=== PATIENT | male | born 1955 | race Caucasian/White ===

== ENCOUNTER 2018-01-10 06:13 | Emergency (ER) | payer OTHER ==
[2018-01-10] MEDS: HYDROCODONE/APAP (5/325) TAB PO (06:46)
== END 2018-01-10 06:54 | disposition home or self-care (01) ==
LOC: FTE 06:13
DX: H60.90 Unspecified otitis externa, unspecified ear (principal); E11.9 Type 2 diabetes mellitus without complications
CPT/HCPCS: 99283; Z7610

== ENCOUNTER 2018-01-12 11:10 | Emergency (ER) | payer OTHER | END 2018-01-12 12:38 | disposition home or self-care (01) | LOC: FTE 11:10 | DX: H60.92 Unspecified otitis externa, left ear (principal); E11.9 Type 2 diabetes mellitus without complications | CPT/HCPCS: 99283; Z7502 ==

== ENCOUNTER 2018-08-14 10:47 | Emergency (ER) | payer OTHER ==
[2018-08-14 10:59] LABS: ADD MAN DIFF? NO
[2018-08-14 11:02] LABS: WHITE BLOOD COUNT 6.9 10^3/ul (4.8-10.8)
[2018-08-14 11:02] LABS: BASOPHILS % 0.6 % (0.0-2.0); EOSINOPHILS # 0.1 10^3/ul (0.0-0.5); EOSINOPHILS % 1.5 % (0.0-7.0); HEMATOCRIT 40.3 % (42.0-52.0); HEMOGLOBIN 14.1 g/dl (14.0-18.0); LYMPHOCYTES # 1.4 10^3/ul (0.8-2.9); LYMPHOCYTES % 20.2 % (15.0-51.0); MEAN CORPUSCULAR HEMOGLOBIN 29.1 pg (29.0-33.0); MEAN CORPUSCULAR VOLUME 83.1 fl (82.0-101.0); MEAN PLATELET VOLUME 11.1 fl (7.4-10.4); MONOCYTE # 0.5 10^3/ul (0.3-0.9); MONOCYTES % 7.7 % (0.0-11.0); NEUTROPHIL # 4.8 10^3/ul (1.6-7.5); NEUTROPHILS % 69.9 % (39.0-77.0); PLATELET COUNT 218 10^3/UL (140-415); RED BLOOD COUNT 4.85 10^6/ul (4.70-6.10); RED CELL DISTRIBUTION WIDTH 11.9 % (11.5-14.5)
[2018-08-14] MEDS: IODIXANOL LOCM 100 ML BTL (11:11)
[2018-08-14] MEDS: SOD CHLORIDE 0.9% 100 ML (11:11)
[2018-08-14 11:14] LABS: HEMOGLOBIN A1C 10.7 % (0-5.9)
[2018-08-14 11:21] LABS: ANION GAP 7 (5-13); BLOOD UREA NITROGEN 20 mg/dl (7-20); CALCIUM 9.5 mg/dl (8.4-10.2); CARBON DIOXIDE 26 mmol/L (21-31); CHLORIDE 105 mmol/L (97-110); CHOL/HDL RATIO 5.4 RATIO; CHOLESTEROL 280 mg/dl (100-200); CREATINE KINASE 259 IU/L (23-200); CREATININE 0.98 mg/dl (0.61-1.24); Estimated GFR > 60 mL/min (>60); GLUCOSE 292 mg/dl (70-220); HDL CHOLESTEROL 51 mg/dl (30-78); INR 0.85; LDL CHOLESTEROL,CALCULATED 184 mg/dl; POTASSIUM 4.4 mmol/L (3.5-5.1); PROTIME 11.7 Sec (11.9-14.9); PT RATIO 0.9; SODIUM 138 mmol/L (135-144); TRIGLYCERIDES 227 mg/dl (0-149)
[2018-08-14 11:22] LABS: PARTIAL THROMBOPLASTIN TIME 25.8 Sec (23.0-35.0)
[2018-08-14 11:23] LABS: ETHANOL < 10.0 mg/dl
[2018-08-14 11:33] LABS: CK INDEX 1.3; CK-MB 3.34 ng/ml (0.0-2.4); TROPONIN-I < 0.012 ng/ml (0.000-0.120)
[2018-08-14] MEDS: CLOPIDOGREL 75 MG TAB PO (13:57)
[2018-08-14] MEDS: ASPIRIN 325 MG TAB PO (13:58)
[2018-08-14] MEDS: morphine 4 MG/ML VIAL IV (14:50)
[2018-08-14] MEDS: ONDANSETRON 4 MG INJ IV (14:50)
[2018-08-14] MEDS: LABETALOL HCL 20MG INJ IV (14:50)
== END 2018-08-14 15:06 | disposition short-term general hospital (02) ==
LOC: E/R 10:47
DX: I69.392 Facial weakness following cerebral infarction (principal); I63.9 Cerebral infarction, unspecified; E11.9 Type 2 diabetes mellitus without complications
CPT/HCPCS: 36415; 70450; 70496; 70498; 71045; 80048; 80061; 80307; 82550; 82553; 83036; 84484; 85025; 85610; 85730; 93005; 96374; 96375; 99285-25

== ENCOUNTER 2018-12-11 04:19 | Emergency (ER) | payer OTHER ==
[2018-12-11 05:09] LABS: ADD MAN DIFF? NO
[2018-12-11 05:14] LABS: BASOPHILS % 0.4 % (0.0-2.0); EOSINOPHILS # 0.2 10^3/ul (0.0-0.5); EOSINOPHILS % 2.5 % (0.0-7.0); HEMATOCRIT 33.3 % (42.0-52.0); HEMOGLOBIN 11.6 g/dl (14.0-18.0); LYMPHOCYTES # 1.5 10^3/ul (0.8-2.9); LYMPHOCYTES % 19.7 % (15.0-51.0); MEAN CORPUSCULAR HEMOGLOBIN 30.1 pg (29.0-33.0); MEAN CORPUSCULAR HGB CONC 34.8 g/dl (32.0-37.0); MEAN CORPUSCULAR VOLUME 86.5 fl (82.0-101.0); MEAN PLATELET VOLUME 11.5 fl (7.4-10.4); MONOCYTE # 0.8 10^3/ul (0.3-0.9); MONOCYTES % 9.9 % (0.0-11.0); NEUTROPHIL # 5.1 10^3/ul (1.6-7.5); NEUTROPHILS % 67.1 % (39.0-77.0); PLATELET COUNT 196 10^3/UL (140-415); RED BLOOD COUNT 3.85 10^6/ul (4.70-6.10); RED CELL DISTRIBUTION WIDTH 12.6 % (11.5-14.5)
[2018-12-11 05:14] LABS: WHITE BLOOD COUNT 7.6 10^3/ul (4.8-10.8)
[2018-12-11 05:37] LABS: ANION GAP 6 (5-13); BLOOD UREA NITROGEN 23 mg/dl (7-20); CALCIUM 9.3 mg/dl (8.4-10.2); CARBON DIOXIDE 27 mmol/L (21-31); CHLORIDE 108 mmol/L (97-110); Estimated GFR 56 mL/min (>60); GLUCOSE 126 mg/dl (70-220); SODIUM 141 mmol/L (135-144)
[2018-12-11 05:45] LABS: B-TYPE NATRIURETIC PEPTIDE 1180 PG/ML (0-125)
[2018-12-11 05:49] LABS: TROPONIN-I 0.024 ng/ml (0.000-0.120)
[2018-12-11] MEDS: FUROSEMIDE 40 MG INJ IV (05:59)
== END 2018-12-11 10:23 | disposition short-term general hospital (02) ==
LOC: E/R 04:19
DX: I50.9 Heart failure, unspecified (principal); J81.1 Chronic pulmonary edema; R06.00 Dyspnea, unspecified; R79.89 Other specified abnormal findings of blood chemistry; D64.9 Anemia, unspecified; N18.9 Chronic kidney disease, unspecified; E11.22 Type 2 diabetes mellitus with diabetic chronic kidney disease; I13.0 Hypertensive heart and chronic kidney disease with heart failure and stage 1 through stage 4 chronic kidney disease, or unspecified chronic kidney disease
CPT/HCPCS: 36415; 71045; 80048; 83880; 84484; 85025; 93005; 96374; 99285-25